=== PATIENT | male | born 1975 | race Caucasian/White ===

== ENCOUNTER 2025-03-14 11:00 | Outpatient (CLI) | payer OTHER, SELFPAY ==
[2025-03-14 15:44] LABS: Hematocrit 47.8 % (42.0-52.0); Hemoglobin 15.1 g/dL (14.1-18.0); Mean Corpuscular HGB Conc 31.6 g/dL (31.8-35.4); Mean Corpuscular Hemoglobin 28.1 pg (27.0-31.2); Mean Corpuscular Volume 88.8 fl (80-94); Platelet Count 382 K/mm3 (142-424); Red Blood Count 5.38 M/mm3 (4.60-6.20); White Blood Count 16.8 K/mm3 (4.8-10.8)
[2025-03-14 16:14] LABS: Total Cells Counted 100
[2025-03-14 16:17] LABS: RBC Morphology Normal
[2025-03-14 17:00] LABS: Albumin Level 4.1 g/dl (3.5-5.0); Chloride 103 mmol/L (98-107); Potassium 4.6 mmoL/L (3.5-5.1); Sodium 139 mmol/L (136-145)
[2025-03-14 17:02] LABS: Alanine Aminotransferase 13 U/L (12-78); Anion Gap 14.6 mEq/L (5-15); Aspartate Amino Transferase 20 U/L (17-59); Blood Urea Nitrogen 16 mg/dl (9-20); Carbon Dioxide 26 mmol/L (22.0-30.0); Creatinine,Serum 1.00 mg/dl (0.66-1.25); Estimated Glomerular Filt Rate 80 ml/min (>60); GFR (African American) 97 ML/MIN (>60)
[2025-03-14 17:03] LABS: Albumin/Globulin Ratio 1.5 (1.1-1.8); Alkaline Phosphatase 102 U/L (38-126); Bilirubin,Total 0.5 mg/dl (0.2-1.3); Calcium 9.0 mg/dl (8.4-10.2); Globulin 2.8 g/dL (1.3-3.2); Glucose 98 mg/dl (74-100); Total Protein,Serum 6.9 g/dl (6.3-8.2)
[2025-03-14 17:34] LABS: Thyroid Stimulating Hormone 1.99 uIU/mL (0.465-4.68)
--- OUTSIDE RECORDS SUMMARY | 2025-03-15 09:42 | XMS_ITS | Clinical Summary ---
Author Organization Healthcare Address [address] 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 Role Phone Unavailable Primary Care Provider Unavailabl e Encounters Date Type Department Care Team Description 01/03/2025 Orders Only External Location [address] [place] [address] Provider, External from Last 3 Months Social History Tobacco Use Types Packs/Day Years Used Date Smoking Tobacco: Never Assessed Sex and Gender Information Value Date Recorded Sex Assigned at Not on file Legal Sex Male 8:34 AM EDT Gender Identity Not on file Sexual Orientation Not on file Plan of Treatment Health Maintenance Due Date Last Done Comments [facility]-Depression Screening 1976 [facility]-/Child/Adol SDOH Screenings 1976 [facility]- SDOH Screenings 1994 [facility]-Adult SDOH Screenings 1994 [facility]-DTaP,Tdap,and Td Vaccine s (1 - Tdap) 09/23/1995 [facility]-Hepatitis B Vaccines (1 of 3 - 19+ 3-dose series) 09/23/1995 CT Colonography 2021 Colonoscopy 2021 FIT-DNA 2021 FIT 2021 FOBT 2021 Sigmoidoscopy 2021 [facility]-Colorectal Cancer Screening 2021 [id number] Vaccine (1 - 20 24-25 season) 2025 [facility]-Influenza Vaccine (#1) 2025 [facility]-Zoster Vaccines (1 of 2) 2026 HPV Vaccines Aged Out No longer eligi ble based on patient's age to complete this topic [facility]-HIB Vaccines Aged Out No longer e ligible based on patient's age to complete this topic [facility]-Hepatitis A Vaccines Aged Out No longer eligible based on patient's age to complete this topic [facility]-IPV Vaccines Aged Out No longer e ligible based on patient's age to complete this topic [facility]-Pneumococcal Vaccine: Pediatrics (0 to 5 Years) and At-Risk Patients (6 to 49 Years) Aged Out No long er eligible based on patient's age to complete this topic [facility]-Rotavirus Vaccines Aged Out No lo nger eligible based on patient's age to complete this topic Procedures Procedure Name Priority Date/Time Associated Diagnosis Comments CT OUTSIDE IMAGES 01/03/2025 3:22 AM EDT from Last 3 Months Results * CT OUTSIDE IMAGES (01/03/2025 3:22 AM EDT) Anatomical Region Laterality Modality Computed Tomogra phy 01/03/2025 3:22 AM EDT us External Provider IMG CT PROCEDURES Final Result from Last 3 Months
--- OUTSIDE RECORDS SUMMARY | 2025-03-15 09:42 | XMS_ITS | Clinical Summary ---
Author Organization [facility] Address [address] [place] [id number] Care Team Providers Care Perioperative Nurse Name Role Phone Pcp, No Primary Care Provider [phone] Source Comments This information has been disclosed to you from confidential records protectedfrom disclosure by state law. You shall make no further disclosure of thisinformation without the specific, written, and informed release of theindividual to whom it pertains, or as otherwise permitted by law. A generalauthorization for the release of medical or other information is not sufficientfor the purposes of therelease of HIV test results or diagnoses. [id number] Allergies Active Allergy Reactions Criticality Noted Date Comments Amoxicillin Nausea And Vomiting 01/03/2025 Medications atorvastatin (LIPITOR) 40 MG tablet Take 1 tablet (40 mg total) by mouth at bedtime. 30 tablet 01/04/2025 2:30 PM EDT 01/04/2025 Active nicotine (NICODERM CQ) 14 mg/[address] 1 patch onto the skin daily. 28 patch 01/04/2025 2:30 PM EDT 01/05/2025 Active Active Problems Problem Noted Date Diagnosed Date Hypertension 01/03/2025 Assessment & Plan (01/03/2025 5:31 PM EDT): Prescibred amlodipine. Not taking. Elevated blood pressure is likely working with anticoagulation to increase LE perfusion. - CTM Leukocytosis 01/03/2025 Assessment & Plan (01/03/2025 5:31 PM EDT): As per patient this is chronic. High concern for hematologic malignancy if chart review does not corroborate. Patient has not B symptoms. - CTM Aortic thrombus 01/03/2025 Assessment & Plan (01/03/2025 5:31 PM EDT): Aortic thrombus identified on CT at OSH for which read is not available. High concern for hypercoagulable state as primary inciting factor complicated by 30 pack-year smoking hx and subsequent endothelial damage. Will hold off on lupus anticoagulant given heparin gtt initiation. - Heparin as above - anticardiolipin, Beta 2 glycoprotein - Factor V Leiden - Protein C, S Anxiety 01/03/2025 Assessment & Plan (01/03/2025 5:31 PM EDT): - Atarax 10 mg TID PRN Tobacco use 01/03/2025 Assessment & Plan (01/03/2025 5:31 PM EDT): - NRT PRN Resolved Problems Problem Noted Date Diagnosed Date Resolved Date Acute lower limb ischemia 01/03/2025 Assessment & Plan (01/03/2025 5:31 PM EDT): Ddx: likely related to aortic thrombus and break off. Less likely due to cholesterol emboli or paradoxical emboli. - Q4 NV checks, page vascular surgery if change in exam - Continue heparin gtt - Recommend TTE - Recommend noncontrast CT head for recent fall with head strike - Recommend CTA Chest, abdomen, and pelvis with runoff when ok from renal perspective. AGUSTIN (acute kidney injury) 01/03/2025 Assessment & Plan (01/03/2025 5:31 PM EDT): Ddx: likely pre-renal less likely 2/2 intrarenal 2/2 TLS in settging of leukocytosis. - 125 ml/hr LR - Repeat AM labs - TLS labs Chest pain 01/03/2025 01/04/2025 Assessment & Plan (01/03/2025 5:31 PM EDT): EKG sinus rhythm, troponin 8, CK 68, repeat 64. Overall reassuring for any acute cardiac etiology. Current working differential includes GERD based on hx of sx, but could also be a component of vascular etiology given his multiple thrombi cannot r/o PE. Vital signs reassuring, SpO2 100% on RA, HR 80. Also hx of recent fall, could be some msk component. - CTM Encounters Date Type Department Care Team Description 01/04/2025 Telephone [facility] Vascular Surgery at [facility] [address] [place] [address] Brenden Hdez MD 01/03/2025 11:19 AM EDT - 01/04/2025 2:42 PM EDT Hospital Encounter [facility] [address] [place] [address] Genaro Bowers MD Clark, Danielle Lillian, MD PAD (peripheral artery disease) ([facility]) (Primary Dx) Discharge Disposition: Home or Self Care WITHOUT Home Care Services 01/03/2025 Travel from Last 3 Months Social History Tobacco Use Types Packs/Day Years Used Date Smoking Tobacco: Every Day Cigarettes Tobacco Cessation:Ready to Q uit: Not Asked; Counseling Given: Not Answered Utilities Answer Date Recorded In the past 12 months has [employer], gas, oil, or water [employer] threatened to shut off services in your home? No 01/03/2025 AUDIT-C Answer Date Recorded Q1: How often do you have a drink containing alcohol? Never 01/03/2025 Q2: How many drinks containi ng alcohol do you have on a typical day when you are drinking? Patient does not drink Q3: How often do you have si x or more drinks on one occasion? Never 01/03/2025 Hunger Vital Sign Answer Date Recorded Within the past 12 months, y ou worried that your food would run out before you got the money to buy more. Never true 01/04/20 25 Within the past 12 months, t he food you bought just didn't last and you didn't have money to get more. Never true 01/03/2025 PRAPARE - Transportation Answer Date Re corded In the past 12 months, has l ack of transportation kept you from medical appointments or from getting medications? No 12/20 In the past 12 months, has l ack of transportation kept you from meetings, work, or from getting things needed for daily living? No 01/03/2025 Housing Stability Vital Sign Answer Valentin e Recorded In the last 12 months, was t here a time when you were not able to pay the mortgage or rent on time? No 01/03/2025 In the past 12 months, how m any times have you moved where you were living? 0 01/03/2025 At any time in the past 12 m [facility], were you homeless or living in a custodial (including now)? No 01/03/2025 Sex and Gender Information Value Date Recorded Sex Assigned at Not on file Legal Sex Male 5:05 AM EDT Gender Identity Not on file Sexual Orientation Not on file Last Filed Vital Signs Vital Sign Reading Time Taken Comments Blood Pressure 180/99 01/04/2025 11:13 AM EDT Pulse 76 01/04/2025 11:13 AM EDT Temperature 36.7 C (98 F) 01/04/2025 11:13 AM EDT Respiratory Rate 18 01/04/2025 11:13 AM EDT Oxygen Saturation 98% 01/04/2025 11:13 AM EDT Inhaled Oxygen Concentration 98% 01/04/2025 1 1:13 AM EDT Weight 77.1 kg (170 lb) 01/03/2025 11:24 AM EDT Height 175.3 cm (5' 9 ) 01/03/2025 11:24 AM EDT Body Mass Index 25.1 01/03/2025 11:24 AM EDT Plan of Treatment Health Maintenance Due Date Last Done Comments Abnormal Colonoscopy Follow Up 1975 Tobacco Cessation Readiness 1975 Depression Screening 1994 HIV Screening 1994 Immunization: DTaP/Tdap/Td (1 - Tdap) 09/23/1995 Immunization: Hepatitis B (1 of 3 - 19+ 3-dose series) 09/23/1995 Immunization: Pneumococcal (1 of 2 - PCV) 09/23/1995 Cologuard (FIT-DNA) 2021 Colonoscopy 2021 Colorectal Cancer Screening (MyChart) 2021 Stool Testing (gFOBT) 2021 Immunization: COVID-19 ( season) 2025 Immunization: Influenza (MyChart) (#1) 2025 Alcohol Misuse Screening 01/03/2026 01/03/2025 Renal Function/GFR 01/04/2026 01/04/2025, 01/03/2025 Hepatitis C Screening ([facility]) Completed Procedures Procedure Name Priority Date/Time Associated Diagnosis Comments VASC BERNARD SINGLE LVL BILATERAL Routine 01/04/2025 2:05 PM EDT APTT-HEPARIN Timed 01/04/2025 12:17 PM EDT EKG - SCAN 01/04/2025 11:34 AM EDT ECHO COMPLETE Routine 01/04/2025 9:04 AM EDT LACTATE DEHYDROGENASE Routine 01/04/2025 6:44 AM EDT APTT-HEPARIN Timed 01/04/2025 6:44 AM EDT C-REACTIVE PROTEIN Routine 01/04/2025 6: 44 AM EDT SED RATE Routine 01/04/2025 6:44 AM EDT LIPID PANEL Routine 01/04/2025 6:44 AM EDT RENAL FUNCTION PANEL W/EGFR Routine 01/04/2025 6:44 AM EDT MAGNESIUM Routine 01/04/2025 6:44 AM EDT CBC Routine 01/04/2025 6:[address] PULMONARY ANGIOGRAPHY Routine 01/04/2025 12:[address] ANGIO ABDOMEN AND PELVIS W AND OR WO IV CONTRAST Routine 01/04/2025 12:[address] HEAD WO CONTRAST STAT 01/04/2025 1 2:34 AM EDT APTT-HEPARIN Timed 01/03/2025 11:16 PM EDT ANTICARDIOLIPIN ANTIBODY- IGG/IGM Routine 01/03/2025 5:33 PM EDT ANTITHROMBIN III Routine 01/03/2025 5:33 PM EDT PROTEIN C ACTIVITY Routine 01/03/2025 5: 33 PM EDT PROTEIN S, FUNCTIONAL Routine 01/03/2025 5:33 PM EDT FACTOR 5 LEIDEN, FACTOR 2 DNA BY PCR Routine 01/03/2025 5:33 PM EDT BETA 2 GLYCOPROTEIN IGG/IGM Routine 01/03/2025 5:33 PM EDT LACTATE DEHYDROGENASE STAT 01/03/2025 5:15 PM EDT URIC ACID Routine 01/03/2025 5:15 PM EDT APTT STAT 01/03/2025 5:15 PM EDT PROTIME-INR STAT 01/03/2025 5:15 PM EDT CBC STAT 01/03/2025 5:15 PM EDT CK Add-On 01/03/2025 4:24 PM EDT HIGH SENSITIVITY TROPONIN STAT 01/03/2025 2:32 PM EDT XR PORTABLE CHEST BUZZ 01/03/2025 1:1 3 PM EDT ANTIBODY SCREEN STAT 01/03/2025 11:52 AM EDT ABO/RH STAT 01/03/2025 11:52 AM EDT APTT Add-On 01/03/2025 11:52 AM EDT CK Add-On 01/03/2025 11:52 AM EDT PROTIME-INR STAT 01/03/2025 11:52 AM EDT DIFFERENTIAL STAT 01/03/2025 11:52 AM EDT CBC STAT 01/03/2025 11:52 AM EDT HEMOGLOBIN A1C Routine 01/03/2025 11:52 AM EDT ED HCV AB REFLEX TO HCV QUANT Routine 01/03/2025 11:52 AM EDT BASIC METABOLIC PANEL STAT 01/03/2025 11:52 AM EDT ED ECG 12-LEAD (MUSE) STAT 01/03/2025 11:39 AM EDT HIGH SENSITIVITY TROPONIN STAT 01/03/2025 11:36 AM EDT from Last 3 Months Results * BERNARD-Ankle Brachial Index (01/04/2025 2:05 PM EDT) Anatomical Region Laterality Modality Vascular Ultrasound 01/04/2025 2:38 PM EDT Narrative 01/04/2025 2:38 PM EDT Bilateral: Doppler waveforms are recorded as multiphasic at the ankle level. Ankle/brachial index (BERNARD) is 1.05 on the right and 0.97 on the left. Toe/brachial index (TBI) is 1.09 on the right and 0.64 on the left. Digit PPG waveform contours appear normal. Conclusions: Normal resting ABIs and distal tibial Doppler waveforms bilateral lower extremities. Procedure: Non-invasive lower extremity arterial examination is performed with the patient in a supine position. Continuous-wave (CW) Doppler is used for waveform acquisition routinely at the posterior tibial and dorsalis pedis levels with selection of either a 4MHz or 8MHz probe. Pneumatic cuffs for the limb segments are applied and pressures are obtained in both brachial arteries, both posterior tibial arteries, and both dorsalis pedis arteries. Photoplethysmography (PPG) is used to obtain digit waveforms and pressure recordings. Procedure Note Eduard Mejia MD - 01/04/2025 Bilateral: Doppler waveforms are recorded as multiphasic at the anklelevel. Ankle/brachial index (BERNARD) is 1.05 on the right and 0.97 on theleft. Toe/brachial index (TBI) is 1.09 on the right and 0.64 on the left.Digit PPG waveform contours appear normal. Conclusions: Normal resting ABIs and distal tibial Doppler waveformsbilateral lower extremities. Procedure: Non-invasive lower extremity arterial examination is performedwith the patient in a supine position. Continuous-wave (CW) Doppler isused for waveform acquisition routinely at the posterior tibial anddorsalis pedis levels with selection of either a 4MHz or 8MHz probe.Pneumatic cuffs for the limb segments are applied and pressures areobtained in both brachial arteries, both posterior tibial arteries, andboth dorsalis pedis arteries. Photoplethysmography (PPG) is used toobtain digit waveforms and pressure recordings. Svetlana Benavides CNP CV VASCULAR ORDERABLES Fin al Result * aPTT-Heparin (01/04/2025 12:17 PM EDT) Only the most recent of3 resultswithin the time period is included. hPTT 102.4 90.0 - 130.0 seconds 01/04/2025 12:44 PM EDT [facility] Plasma 01/04/2025 12:1 7 PM EDT 01/04/2025 12:25 PM EDT Naz Flores MD LAB BLOOD ORDERABLES F inal Result [facility] [address] [place] [address], [facility] * EKG - scan (01/04/2025 11:34 AM EDT) Scanning Uch[facility] SCAN DOCS - NO RESULTS Final Res ult * ECHO COMPLETE (01/04/2025 9:04 AM EDT) Anatomical Region Laterality Modality Chest Ultrasound 01/04/2025 8:46 AM EDT Narrative 01/04/2025 10:54 AM EDT * [facility]* [address] [place] [id number] Transthoracic Echocardiogram Patient: Juan García Room: 3220 Height: 69in MR Number: [id number] : 1975 Weight: 170lb Account: [id number] Gender: M BP: 187 / 3 Study Date: 01/04/2025 Age: 49 BSA: 1.93m^2 Referring physician: Eben Urena Interpreting physician: Rivera Mast PERFORMING Rivera Mast LITIGATION ATTORNEY ASSOCIATE Princess Dove ORDERING Eben Urena REFERRING Eben Urena ATTENDING Naz Flores ADMITTING Naz Flores Procedure:TRANSTHORACIC ECHO (TTE) Order: Accession COMPLETE Number:[id number] Indications: Shortness of breath (R06.02). Study data: Height: 69in. 175.3cm. Weight: 170lb. 77.1kg. Study status: Routine. Procedure: A transthoracic echocardiogram was performed. Image quality was good. Scanning was performed from the parasternal, apical, and subcostal acoustic windows. Transthoracic echocardiogram. M-mode, complete 2D, complete spectral Doppler, and color Doppler. Birthdate: Patient birthdate: 1975. Age: Patient is 49year(s) old. Sex: gender: male. Body mass index: BMI: 25.1kg/m^2. Body surface area: BSA: 1.93m^2. Blood pressure: 187/3 Patient status: Inpatient. Study date: Study date: 01/04/2025. Study time: 08:46 AM. Location: Echo laboratory. Study Conclusions - Left ventricle: The cavity size is normal. Wall thickness is normal. Systolic function is normal. The estimated ejection fraction is 55-60%. Wall motion is normal; there are no regional wall motion abnormalities. Cannot assess LV diastolic function. - Right ventricle: Systolic function is normal by visual assessment. Cardiac Anatomy Left ventricle: - The cavity size is normal. Wall thickness is normal. Systolic function is normal. The estimated ejection fraction is 55-60%. Wall motion is normal; there are no regional wall motion abnormalities. - Cannot assess LV diastolic function. Aortic valve: - TrileafletThe leaflets are normal thickness. Mobility is not restricted. Velocity is within the normal range. There is no stenosis. There is no regurgitation. The mean systolic gradient is 4mm Hg. The peak systolic gradient is 7mm Hg. The LVOT to aortic valve VTI ratio is 0.87. The valve area is 3.3cm^2. The valve area index is 1.7cm^2/m^2. The ratio of LVOT to aortic valve peak velocity is 0.76. The valve area is 2.9cm^2. The valve area index is 1.49cm^2/m^2. Mitral valve: - The valve is structurally normal. Mobility is not restricted. Inflow velocity is within the normal range. There is no evidence for stenosis. There is no regurgitation. The mean diastolic gradient is 2mm Hg. The peak diastolic gradient is 5mm Hg. The valve area is 1.9cm^2. The valve area index is 1cm^2/m^2. The valve area by pressure half-time is 4.5cm^2. The valve area index by pressure half-time is 2.33cm^2/m^2. The valve area (LVOT continuity) is 1.9cm^2. The valve area index (LVOT continuity) is 1cm^2/m^2. Left atrium: The atrium is normal in size. Pulmonary artery: - Systolic pressure could not be accurately estimated. Right ventricle: - The cavity size is normal. Wall thickness is normal. Systolic function is normal by visual assessment. Pulmonic valve: - Poorly visualized. Velocity is within the normal range. There is no evidence for stenosis. There is trivial regurgitation. Tricuspid valve: - The valve is structurally normal. Inflow velocity is within the normal range. There is trivial regurgitation. Right atrium: The atrium is normal in size. Pericardium: - There is no pericardial effusion. Systemic veins: Inferior vena cava: The IVC is normal-sized. Measurements Left ventricle Value Ref PRASAD, LAX (L) 4.1 cm 4.2 - 5.8 ESD, LAX (N) 2.7 cm 2.5 - 4.0 PRASAD/bsa, LAX (L) 2.1 cm/m^2 2.2 - 3.0 ESD/bsa, LAX (N) 1.4 cm/m^2 1.3 - 2.1 FS, LAX (N) 35 % 25 - 43 FS, LAX chord (N) 35 % 25 - 43 ESD major ax, A4C 6.6 cm --------- ESD/bsa major ax, A4C 3.4 cm/m^2 --------- PRASAD minor ax, A4C 6.6 cm --------- PRASAD/bsa minor ax, A4C 3.4 cm/m^2 --------- BROOKE, A4C 25.8 cm^2 --------- MELIDA, A4C 14.8 cm^2 --------- FAC, A4C 43 % --------- PRASAD major ax, A2C 8.3 cm --------- PRASAD/bsa major ax, A2C 4.3 cm/m^2 --------- BROOKE, A2C 27.3 cm^2 --------- MELIDA, A2C 14.2 cm^2 --------- FAC, A2C 48 % --------- IVS, ED (N) 0.8 cm 0.6 - 1.0 ESD (N) 2.7 cm 2.5 - 4.0 ESD/bsa (N) 1.4 cm/m^2 1.3 - 2.1 PW, ED (N) 1.0 cm 0.6 - 1.0 IVS/PW, ED 0.84 --------- EDV (N) 76 ml 62 - 150 ESV (N) 27 ml 21 - 61 EF (N) 65 % 52 - 72 SV 77 ml --------- Qs 4.3 L/min --------- EDV/bsa (N) 39 ml/m^2 34 - 74 ESV/bsa (N) 14 ml/m^2 11 - 31 SV/bsa 40 ml/m^2 --------- Qs/bsa 2.2 L/(min-m^2) --------- EDV, 1-p A2C (N) 76 ml 59 - 175 ESV, 1-p A2C (N) 50 ml 15 - 75 EF, 1-p A2C (N) 66 % 48 - 76 SV, 1-p A2C 49 ml --------- EDV/bsa, 1-p A2C (N) 39 ml/m^2 31 - 87 ESV/bsa, 1-p A2C (N) 26 ml/m^2 9 - 37 SV/bsa, 1-p A2C 25.2 ml/m^2 --------- EDV, 1-p A4C (L) 66 ml 69 - 185 ESV, 1-p A4C (N) 29 ml 22 - 78 EF, 1-p A4C (N) 56 % 46 - 74 SV, 1-p A4C 51 ml --------- EDV/bsa, 1-p A4C (L) 34 ml/m^2 37 - 93 ESV/bsa, 1-p A4C (N) 15 ml/m^2 12 - 40 SV/bsa, 1-p A4C 26 ml/m^2 --------- EF, 2-p (N) 61 % 52 - 72 SV, 2-p 43 ml --------- SV/bsa, 2-p 19.4 ml/m^2 --------- E', lat davide, TDI (N) 10.0 cm/sec >=10.0 E/e', lat davide, TDI (N) 11 <=13 E', med davide, TDI (L) 6.1 cm/sec >=7.0 E/e', med davide, TDI 18 --------- E', avg, TDI 8.0 cm/sec --------- E/e', avg, TDI (N) 13 <=14 LVOT Value Ref Diam, S 2.2 cm --------- Area 3.8 cm^2 --------- Peak saida, S 0.98 m/sec --------- Peak grad, S 4 mm Hg --------- SV 77 ml --------- SV/bsa 40 ml/m^2 --------- Right ventricle Value Ref PRASAD minor ax, A4C base (N) 2.9 cm 2.5 - 4.1 PRASAD minor ax, A4C mid (N) 2.4 cm 1.9 - 3.5 TAPSE, MM (N) 2.6 cm >=1.7 S' lateral (N) 14.8 cm/sec >=9.5 RVOT Value Ref Peak v, S 0.74 m/sec --------- Left atrium Value Ref AP dim, ES (N) 3.2 cm 3.0 - 4.0 AP dim index, ES (N) 1.7 cm/m^2 1.5 - 2.3 Area ES, A4C (N) 16 cm^2 <=20 Area/bsa ES, A4C 8.45 cm^2/m^2 --------- SI dim, A2C 5.4 cm --------- Vol, S (N) 46 ml 18 - 58 Vol/bsa, S (N) 24 ml/m^2 16 - 34 Vol, ES, 1-p A4C (N) 42 ml 18 - 58 Vol/bsa, ES, 1-p A4C (N) 22 ml/m^2 12 - 37 Vol, ES, 1-p A2C (N) 48 ml 18 - 58 Vol/bsa, ES, 1-p A2C (N) 25 ml/m^2 11 - 43 Vol, ES, 2-p 46 ml --------- Vol/bsa, ES, 2-p (N) 24 ml/m^2 16 - 34 Right atrium Value Ref Area, ES, A4C (N) 13 cm^2 10 - 18 Aortic valve Value Ref Peak v, S 1.3 m/sec --------- Mean v, S 0.89 m/sec --------- Mean grad, S 4 mm Hg --------- Peak grad, S 7 mm Hg --------- LVOT/AV, VTI ratio 0.87 --------- NATALIE, VTI 3.3 cm^2 --------- NATLAIE/bsa, VTI 1.7 cm^2/m^2 --------- LVOT/AV, Vpeak ratio 0.76 --------- NATALIE, Vmax 2.9 cm^2 --------- NATALIE/bsa, Vmax 1.49 cm^2/m^2 --------- Mitral valve Value Ref Mean v, D 0.56 m/sec --------- Peak E 1.07 m/sec --------- Peak A 0.81 m/sec --------- VTI leaflet coapt 39.7 cm --------- MiV/LVOT VTI 2.0 --------- Decel slope 736 cm/s^2 --------- Decel time 190 ms --------- PHT 49 ms --------- Mean grad, D 2 mm Hg --------- Peak grad, D 5 mm Hg --------- Peak E/A ratio 1.3 --------- E-VTI 39.7 cm --------- A-VTI 39.7 cm --------- VTI E/A 1.0 --------- MVA 1.9 cm^2 --------- MVA/bsa 1 cm^2/m^2 --------- MVA, PHT 4.5 cm^2 --------- MVA/bsa, PHT 2.33 cm^2/m^2 --------- MVA, LVOT cont 1.9 cm^2 --------- MVA/bsa, LVOT cont 1 cm^2/m^2 --------- Davide VTI 39.7 cm --------- Pulmonic valve Value Ref Peak v, S 1.1 m/sec --------- Aortic root Value Ref Root diam (N) 3.9 cm 2.6 - 4.1 Root diam/bsa 2.0 cm/m^2 --------- Legend: (L) and (H) sybil values outside specified reference range. (N) chiu values inside specified reference range. Reviewed and confirmed by Rivera Mast [id number] Procedure Note Rivera Mast MD - 01/04/2025 * [facility]* [address] [place] [address] Transthoracic Echocardiogram Patient: Juan García Room: 3220 Height: 69in MR Number: [id number] : 1975 Weight: 170lb Account: [id number] Gender: M BP: 187 /3 Study Date: 01/04/2025 Age: 49 BSA:1.93m^2 Referring physician: Eben Urena Interpreting physician: Rivera Mast PERFORMING Rivera Mast LITIGATION ATTORNEY ASSOCIATE Princess Dove ORDERING Eben Urena REFERRING Eben Urena ATTENDING Naz Flores ADMITTING Naz Flores Procedure:TRANSTHORACIC ECHO (TTE) Order: Accession COMPLETE Number:[id number] Indications: Shortness of breath (R06.02). Study data: Height: 69in. 175.3cm. Weight: 170lb. 77.1kg. Studystatus: Routine. Procedure: A transthoracic echocardiogram was performed.Image quality was good. Scanning was performed from the parasternal, apical,and subcostal acoustic windows. Transthoracic echocardiogram.M-mode, complete 2D, complete spectral Doppler, and color Doppler. Birthdate: Patient birthdate: 1975. Age: Patient is 49year(s) old. Sex: gender: male. Body mass index: BMI: 25.1kg/m^2. Body surface area: BSA: 1.93m^2. Blood pressure: 187/3 Patient status: Inpatient.Study date: Study date: 01/04/2025. Study time: 08:46 AM. Location: Echo laboratory. Study Conclusions - Left ventricle: The cavity size is normal. Wall thickness is normal. Systolic function is normal. The estimated ejection fraction is55-60%. Wall motion is normal; there are no regional wall motionabnormalities. Cannot assess LV diastolic function. - Right ventricle: Systolic function is normal by visual assessment. Cardiac Anatomy Left ventricle: - The cavity size is normal. Wall thickness is normal. Systolic functionis normal. The estimated ejection fraction is 55-60%. Wall motion isnormal; there are no regional wall motion abnormalities. - Cannot assess LV diastolic function. Aortic valve: - TrileafletThe leaflets are normal thickness. Mobility is notrestricted. Velocity is within the normal range. There is no stenosis. There is no regurgitation. The mean systolic gradient is 4mm Hg. The peak systolic gradient is 7mm Hg. The LVOT to aortic valve VTI ratio is 0.87. Thevalve area is 3.3cm^2. The valve area index is 1.7cm^2/m^2. The ratio of LVOTto aortic valve peak velocity is 0.76. The valve area is 2.9cm^2. Thevalve area index is 1.49cm^2/m^2. Mitral valve: - The valve is structurally normal. Mobility is not restricted. Inflow velocity is within the normal range. There is no evidence forstenosis. There is no regurgitation. The mean diastolic gradient is 2mm Hg. Thepeak diastolic gradient is 5mm Hg. The valve area is 1.9cm^2. The valvearea index is 1cm^2/m^2. The valve area by pressure half-time is 4.5cm^2.The valve area index by pressure half-time is 2.33cm^2/m^2. The valve area (LVOT continuity) is 1.9cm^2. The valve area index (LVOT continuity)is 1cm^2/m^2. Left atrium: The atrium is normal in size. Pulmonary artery: - Systolic pressure could not be accurately estimated. Right ventricle: - The cavity size is normal. Wall thickness is normal. Systolic functionis normal by visual assessment. Pulmonic valve: - Poorly visualized. Velocity is within the normal range. There is no evidence for stenosis. There is trivial regurgitation. Tricuspid valve: - The valve is structurally normal. Inflow velocity is within the normal range. There is trivial regurgitation. Right atrium: The atrium is normal in size. Pericardium: - There is no pericardial effusion. Systemic veins: Inferior vena cava: The IVC is normal-sized. Measurements Left ventricle Value Ref PRASAD, LAX (L) 4.1 cm 4.2 - 5.8 ESD, LAX (N) 2.7 cm 2.5 - 4.0 PRASAD/bsa, LAX (L) 2.1 cm/m^2 2.2 - 3.0 ESD/bsa, LAX (N) 1.4 cm/m^2 1.3 - 2.1 FS, LAX (N) 35 % 25 - 43 FS, LAX chord (N) 35 % 25 - 43 ESD major ax, A4C 6.6 cm --------- ESD/bsa major ax, A4C 3.4 cm/m^2 --------- PRASAD minor ax, A4C 6.6 cm --------- PRASAD/bsa minor ax, A4C 3.4 cm/m^2 --------- BROOKE, A4C 25.8 cm^2 --------- MELIDA, A4C 14.8 cm^2 --------- FAC, A4C 43 % --------- PRASAD major ax, A2C 8.3 cm --------- PRASAD/bsa major ax, A2C 4.3 cm/m^2 --------- BROOKE, A2C 27.3 cm^2 --------- MELIDA, A2C 14.2 cm^2 --------- FAC, A2C 48 % --------- IVS, ED (N) 0.8 cm 0.6 - 1.0 ESD (N) 2.7 cm 2.5 - 4.0 ESD/bsa (N) 1.4 cm/m^2 1.3 - 2.1 PW, ED (N) 1.0 cm 0.6 - 1.0 IVS/PW, ED 0.84 --------- EDV (N) 76 ml 62 - 150 ESV (N) 27 ml 21 - 61 EF (N) 65 % 52 - 72 SV 77 ml --------- Qs 4.3 L/min --------- EDV/bsa (N) 39 ml/m^2 34 - 74 ESV/bsa (N) 14 ml/m^2 11 - 31 SV/bsa 40 ml/m^2 --------- Qs/bsa 2.2 L/(min-m^2) --------- EDV, 1-p A2C (N) 76 ml 59 - 175 ESV, 1-p A2C (N) 50 ml 15 - 75 EF, 1-p A2C (N) 66 % 48 - 76 SV, 1-p A2C 49 ml --------- EDV/bsa, 1-p A2C (N) 39 ml/m^2 31 - 87 ESV/bsa, 1-p A2C (N) 26 ml/m^2 9 - 37 SV/bsa, 1-p A2C 25.2 ml/m^2 --------- EDV, 1-p A4C (L) 66 ml 69 - 185 ESV, 1-p A4C (N) 29 ml 22 - 78 EF, 1-p A4C (N) 56 % 46 - 74 SV, 1-p A4C 51 ml --------- EDV/bsa, 1-p A4C (L) 34 ml/m^2 37 - 93 ESV/bsa, 1-p A4C (N) 15 ml/m^2 12 - 40 SV/bsa, 1-p A4C 26 ml/m^2 --------- EF, 2-p (N) 61 % 52 - 72 SV, 2-p 43 ml --------- SV/bsa, 2-p 19.4 ml/m^2 --------- E', lat davide, TDI (N) 10.0 cm/sec >=10.0 E/e', lat davide, TDI (N) 11 <=13 E', med davide, TDI (L) 6.1 cm/sec >=7.0 E/e', med davide, TDI 18 --------- E', avg, TDI 8.0 cm/sec --------- E/e', avg, TDI (N) 13 <=14 LVOT Value Ref Diam, S 2.2 cm --------- Area 3.8 cm^2 --------- Peak saida, S 0.98 m/sec --------- Peak grad, S 4 mm Hg --------- SV 77 ml --------- SV/bsa 40 ml/m^2 --------- Right ventricle Value Ref PRASAD minor ax, A4C base (N) 2.9 cm 2.5 - 4.1 PRASAD minor ax, A4C mid (N) 2.4 cm 1.9 - 3.5 TAPSE, MM (N) 2.6 cm >=1.7 S' lateral (N) 14.8 cm/sec >=9.5 RVOT Value Ref Peak v, S 0.74 m/sec --------- Left atrium Value Ref AP dim, ES (N) 3.2 cm 3.0 - 4.0 AP dim index, ES (N) 1.7 cm/m^2 1.5 - 2.3 Area ES, A4C (N) 16 cm^2 <=20 Area/bsa ES, A4C 8.45 cm^2/m^2 --------- SI dim, A2C 5.4 cm --------- Vol, S (N) 46 ml 18 - 58 Vol/bsa, S (N) 24 ml/m^2 16 - 34 Vol, ES, 1-p A4C (N) 42 ml 18 - 58 Vol/bsa, ES, 1-p A4C (N) 22 ml/m^2 12 - 37 Vol, ES, 1-p A2C (N) 48 ml 18 - 58 Vol/bsa, ES, 1-p A2C (N) 25 ml/m^2 11 - 43 Vol, ES, 2-p 46 ml --------- Vol/bsa, ES, 2-p (N) 24 ml/m^2 16 - 34 Right atrium Value Ref Area, ES, A4C (N) 13 cm^2 10 - 18 Aortic valve Value Ref Peak v, S 1.3 m/sec --------- Mean v, S 0.89 m/sec --------- Mean grad, S 4 mm Hg --------- Peak grad, S 7 mm Hg --------- LVOT/AV, VTI ratio 0.87 --------- NATALIE, VTI 3.3 cm^2 --------- NATALIE/bsa, VTI 1.7 cm^2/m^2 --------- LVOT/AV, Vpeak ratio 0.76 --------- NATALIE, Vmax 2.9 cm^2 --------- NATALIE/bsa, Vmax 1.49 cm^2/m^2 --------- Mitral valve Value Ref Mean v, D 0.56 m/sec --------- Peak E 1.07 m/sec --------- Peak A 0.81 m/sec --------- VTI leaflet coapt 39.7 cm --------- MiV/LVOT VTI 2.0 --------- Decel slope 736 cm/s^2 --------- Decel time 190 ms --------- PHT 49 ms --------- Mean grad, D 2 mm Hg --------- Peak grad, D 5 mm Hg --------- Peak E/A ratio 1.3 --------- E-VTI 39.7 cm --------- A-VTI 39.7 cm --------- VTI E/A 1.0 --------- MVA 1.9 cm^2 --------- MVA/bsa 1 cm^2/m^2 --------- MVA, PHT 4.5 cm^2 --------- MVA/bsa, PHT 2.33 cm^2/m^2 --------- MVA, LVOT cont 1.9 cm^2 --------- MVA/bsa, LVOT cont 1 cm^2/m^2 --------- Davide VTI 39.7 cm --------- Pulmonic valve Value Ref Peak v, S 1.1 m/sec --------- Aortic root Value Ref Root diam (N) 3.9 cm 2.6 - 4.1 Root diam/bsa 2.0 cm/m^2 --------- Legend: (L) and (H) sybil values outside specified reference range. (N) chiu values inside specified reference range. Reviewed and confirmed by Rivera Mast [id number] us Eben Urena MD CV ECHO ORDERABLES Final Re sult * Renal Function Panel w/EGFR (01/04/2025 6:44 AM EDT) Sodium 137 133 - 146 mmol/L 01/04/2025 7:32 AM EDT [facility] Potassium 3.5 3.5 - 5.3 mmol/L 01/04/2025 7:32 AM EDT [facility] Chloride 105 98 - 110 mmol/L 01/04/2025 7:32 AM EDT [facility] CO2 22 21 - 33 mmol/L 01/04/2025 7:32 AM EDT [facility] Anion Gap 10 3 - 16 mmol/L 01/04/2025 7:32 AM EDT [facility] BUN 12 7 - 25 mg/dL 01/04/2025 7:32 AM EDT [facility] Creatinine 0.88 0.60 - 1.30 mg/dL 01/04/2025 7:32 AM EDT [facility] Glucose 97 70 - 100 mg/dL 01/04/2025 7:32 AM EDT [facility] Calcium 8.9 8.6 - 10.3 mg/dL 01/04/2025 7:32 AM EDT [facility] Phosphorus 2.3 2.1 - 4.7 mg/dL 01/04/2025 7:32 AM EDT [facility] Albumin 3.9 3.5 - 5.7 g/dL 01/04/2025 7:32 AM EDT [facility] Osmolality, Calculated 284 278 - 305 mOsm/kg 01/04/2025 7:32 AM EDT [facility] EGFR >90 01/04/2025 7:32 AM EDT [facility] Comment: As of 2021, the estimated GFR is calculated using the 2020 Chronic Kidney Disease Epidemiology Collaboration (CKD-EPI) equation. In line with the NKF-ASN Task Force Recommendations, this equation does not include a coefficient for race. A single eGFR value is calculated for each patient. The reference interval is >60 mL/min/1.73m2. eGFR values greater than 90 will be reported as >90mL/min/1.73m2. Reference: Jaxson C, Thuan M, Raoul DC, Gabriele ND, Rahul CA, Holly [place], et al. A Unifying Approach for GFR Estimation: Recommendations of the NKF-ASN Task Force on Reassessing the inclusion of Race in Diagnosing Kidney Disease. Am J Kidney Dis. 2020. GFR is estimated using creatinine, age, and sex. Patient's values should be interpreted as a trend. Below 90 mL/min/1.73m2, the patient may have renal disease. For additional information: www.kidney.org Plasma 01/04/2025 6:44 AM EDT 01/04/2025 6:58 AM EDT us Eben Urena MD LAB BLOOD ORDERABLES Final Result [facility] [address] [place], [place] [address] * Sed Rate (01/04/2025 6:44 AM EDT) Sed Rate 13 0 - 15 mm/hr 01/04/2025 8:23 AM EDT [facility] Whole Blood 01/04/2025 6:44 AM EDT 01/04/2025 6:58 AM EDT us Naz Flores MD LAB BLOOD ORDERABLES F inal Result [facility] [address] * (ABNORMAL) CBC (01/04/2025 6:44 AM EDT) Only the most recent of3 resultswithin the time period is included. WBC 15.6(H) 3.8 - 10.8 10E3/uL 01/04/2025 7:06 AM EDT [facility] RBC 5.14 4.20 - 5.80 10E6/uL 01/04/2025 7:06 AM EDT [facility] Hemoglobin 14.5 13.2 - 17.1 g/dL 01/04/2025 7:06 AM EDT [facility] Hematocrit 42.6 38.5 - 50.0 % 01/04/2025 7:06 AM EDT [facility] MCV 82.9 80.0 - 100.0 fL 01/04/2025 7:06 AM EDT [facility] MCH 28.2 27.0 - 33.0 pg 01/04/2025 7:06 AM EDT [facility] MCHC 34.0 32.0 - 36.0 g/dL 01/04/2025 7:06 AM EDT [facility] RDW 14.0 11.0 - 15.0 % 01/04/2025 7:06 AM EDT [facility] Platelets 262 140 - 400 10E3/uL 01/04/2025 7:06 AM EDT [facility] MPV 8.6 7.5 - 11.5 fL 01/04/2025 7:06 AM EDT [facility] Whole Blood 01/04/2025 6:44 AM EDT 01/04/2025 6:58 AM EDT Eben Urena MD LAB BLOOD ORDERABLES Final Result [facility] [address] [facility] * C-Reactive Protein (01/04/2025 6:44 AM EDT) CRP 1.9 1.0 - 10.0 mg/L 01/04/2025 7:32 AM EDT [facility] Plasma 01/04/2025 6:44 AM EDT 01/04/2025 6:58 AM EDT Naz Flores MD LAB BLOOD ORDERABLES F inal Result Performing Organization Address City/[facility]/ZIP Co de Phone Number [facility] [address] [facility]. [address] * Magnesium (01/04/2025 6:44 AM EDT) Pathologist [facility] Magnesium 1.6 1.5 - 2.5 mg/dL 01/04/2025 7:32 AM EDT [facility] Plasma 01/04/2025 6:44 AM EDT 01/04/2025 6:58 AM EDT Eben Urena MD LAB BLOOD ORDERABLES Final Result Performing Organization Address [facility] Co de Phone Number [facility] [address] [facility]. [address] * Lactate Dehydrogenase (01/04/2025 6:44 AM EDT) Only the most recent of2 resultswithin the time period is included. Pathologist [facility] LD 152 110 - 270 U/L 01/04/2025 7:31 AM EDT [facility] Plasma 01/04/2025 6:44 AM EDT 01/04/2025 6:59 AM EDT Porfirio Nova MD LAB BLOOD ORDERABLES Final Re sult Performing Organization Address [facility] Co de Phone Number [facility] [address] [facility] * (ABNORMAL) Lipid Profile, AM (01/04/2025 6:44 AM EDT) Pathologist [facility] Non-HDL Cholesterol, Calculated 172(H) 0 - 129 mg/dL 01/04/2025 7:32 AM EDT [facility] Comment: Desirable: < 130 mg/dL Above Desirable: 130-159 mg/dL Borderline High: 160-189 mg/dL High: 190-219 mg/dL Very High: > 219 mg/dL Cholesterol, Total 210(H) 0 - 200 mg/dL 01/04/2025 7:32 AM EDT [facility] Triglycerides 106 10 - 149 mg/dL 01/04/2025 7:32 AM EDT [facility] HDL 38(L) 60 - 92 mg/dL 01/04/2025 7:32 AM EDT [facility] Comment: LIPID PROFILE INTERPRETATION CHOLESTEROL,TOTAL(mg/dL) DESIRABLE: < 200 BORDERLINE HIGH RISK: 200 - 239 HIGH RISK(UNDESIRABLE): =/> 240 LDL CHOLESTEROL(mg/dL) OPTIMAL: < 100 NEAR HIGH OPTIMAL: 100 - 129 BORDERLINE HIGH RISK: 130 - 159 HIGH RISK: 160 - 189 VERY HIGH RISK: =/> 190 HDL CHOLESTEROL(mg/dL) HIGH RISK(UNDESIRABLE): < 40 BORDERLINE: 40 - 59 LOW RISK (DESIRABLE): => 60 TRIGLYCERIDES (mg/dL) NORMAL(DESIRABLE): < 150 BORDERLINE HIGH RISK: 150 - 199 HIGH RISK: 200 - 499 VERY HIGH RISK: =/> 500 Based on the guidlines of the National Cholesterol Education Program (NCEP). Assumes sample obtained after a 9- to 12- hour fast. LDL Cholesterol 151 mg/dL 7:32 AM EDT [facility] Plasma 01/04/2025 6:44 AM EDT 01/04/2025 6:58 AM EDT Narrative [facility] - 01/04/2025 7:32 AM EDT LDL cholesterol calculated using the Friedewald equation. us Naz Flores MD LAB BLOOD ORDERABLES F inal Result [facility] [address] [place] [address], [facility] * CT Angio Abd-Pelvis W and or WO IV Contrast (01/04/2025 12:34 AM EDT) Anatomical Region Laterality Modality Abdomen, Pelvis Computed Tomogra phy 01/04/2025 12:1 5 AM EDT Impressions 01/04/2025 8:32 AM EDT IMPRESSION: 1. Mild atherosclerosis of the infrarenal aorta and iliac branches. No intra-aortic thrombi within the abdomen. Visceral arteries are patent. Report Verified by: Stephen Chadwick MD at 01/04/2025 8:32 AM EDT Narrative 01/04/2025 8:32 AM EDT EXAM: CT ANGIO ABDOMEN AND PELVIS W AND OR WO IV CONTRAST INDICATION: Aortic thrombus TECHNIQUE: CT angiography of the abdomen and pelvis was performed. Axial images were obtained with coronal and sagittal reconstructions. 3-D reconstructions and maximum intensity projection images were performed on a separate workstation. CONTRAST: 140 mL of IOHEXOL 350 MG IODINE/ML INTRAVENOUS SOLUTION administered intravenously FIELD OF VIEW: 36 cm COMPARISON: Outside CT 21 hours prior FINDINGS: Lower Chest: Reported separately on a same day chest CT. Liver: Normal liver morphology. No focal liver lesion. Biliary Tree: Gallbladder is surgically absent. No biliary ductal dilation. Spleen: Unremarkable Pancreas: Normal Adrenal Glands: Nodular hyperplasia of the left adrenal gland, with no discrete lesion. Right adrenal gland is normal. Kidneys/Ureters: Symmetric size and enhancement. Mild cortical scarring in the left lower pole. No suspicious renal lesion. No collecting system dilation. Urinary bladder is unremarkable Gastrointestinal Tract: GI tract wall thickness and caliber is within normal limits. A few scattered diverticula. Moderate amount of stool throughout the colon. Normal appendix Lymphatics: No lymphadenopathy. Vasculature: * Eccentric thrombus in the lower descending thoracic aorta, grossly unchanged from 21 hours prior. Other intrathoracic aortic findings are reported on a concurrent CTPA. Mild calcified and noncalcified atherosclerotic disease at the infrarenal aorta and common iliac arteries, without aneurysmal dilation or dissection of the abdominal aorta. * The celiac artery, SMA, and MATTIE are patent without flow-limiting stenosis. Accessory left hepatic artery incidentally noted. * 2 right renal arteries and a single left renal artery, without flow-limiting stenosis. * Patent portal vein and splenic vein. Remaining venous structures not well opacified due to arterial phase timing. Peritoneum/Retroperitoneum: No free fluid or free air. Reproductive organs: Prostate gland and seminal vesicles are unremarkable. Abdominal Wall/Soft Tissues: No acute findings. Osseous Structures: No acute or suspicious osseous findings. Procedure Note Stephen Chadwick MD - 01/04/2025 EXAM: CT ANGIO ABDOMEN AND PELVIS W AND OR WO IV CONTRAST INDICATION: Aortic thrombus TECHNIQUE: CT angiography of the abdomen and pelvis was performed. Axialimages were obtained with coronal and sagittal reconstructions. 3-Dreconstructions and maximum intensity projection images were performed devin separate workstation. CONTRAST: 140 mL of IOHEXOL 350 MG IODINE/ML INTRAVENOUS SOLUTIONadministered intravenously FIELD OF VIEW: 36 cm COMPARISON: Outside CT 21 hours prior FINDINGS: Lower Chest: Reported separately on a same day chest CT. Liver: Normal liver morphology. No focal liver lesion. Biliary Tree: Gallbladder is surgically absent. No biliary ductaldilation. Spleen: Unremarkable Pancreas: Normal Adrenal Glands: Nodular hyperplasia of the left adrenal gland, with nodiscrete lesion. Right adrenal gland is normal. Kidneys/Ureters: Symmetric size and enhancement. Mild cortical scarring inthe left lower pole. No suspicious renal lesion. No collecting systemdilation. Urinary bladder is unremarkable Gastrointestinal Tract: GI tract wall thickness and caliber is withinnormal limits. A few scattered diverticula. Moderate amount of stoolthroughout the colon. Normal appendix Lymphatics: No lymphadenopathy. Vasculature: * Eccentric thrombus in the lower descending thoracic aorta, grosslyunchanged from 21 hours prior. Other intrathoracic aortic findings arereported on a concurrent CTPA. Mild calcified and noncalcifiedatherosclerotic disease at the infrarenal aorta and common iliac arteries,without aneurysmal dilation or dissection of the abdominal aorta. * The celiac artery, SMA, and MATTIE are patent without flow-limitingstenosis. Accessory left hepatic artery incidentally noted. * 2 right renal arteries and a single left renal artery, withoutflow-limiting stenosis. * Patent portal vein and splenic vein. Remaining venous structures notwell opacified due to arterial phase timing. Peritoneum/Retroperitoneum: No free fluid or free air. Reproductive organs: Prostate gland and seminal vesicles areunremarkable. Abdominal Wall/Soft Tissues: No acute findings. Osseous Structures: No acute or suspicious osseous findings. IMPRESSION: 1. Mild atherosclerosis of the infrarenal aorta and iliac branches. Nointra- aortic thrombi within the abdomen. Visceral arteries are patent. Report Verified by: Stephen Chadwick MD at 01/04/2025 8:32 AM EDT us Eben Urena MD IMG CT ORDERABLES Final Res ult * CT Pulmonary Angiography (01/04/2025 12:34 AM EDT) Anatomical Region Laterality Modality Chest Computed Tomogra phy 01/04/2025 12:1 5 AM EDT Impressions 01/04/2025 1:28 AM EDT IMPRESSION: 1. No acute pulmonary embolism. 2. Multifocal small free floating thrombi at the aortic arch and descending thoracic aorta Report Verified by: Daniel Lowery DO at 01/04/2025 1:28 AM EDT Narrative 01/04/2025 1:28 AM EDT EXAM: CT PULMONARY ANGIOGRAPHY INDICATION: Pulmonary embolism (PE) suspected, neg D-dimer COMPARISON: Outside hospital CT from 01/03/2025 TECHNIQUE: Multidetector CT imaging was performed through the lungs in the supine position following the administration of intravenous contrast according to the CTPA protocol. Additional maximum intensity projection images were performed. CONTRAST: 140 mL of IOHEXOL 350 MG IODINE/ML INTRAVENOUS SOLUTION administered intravenously FINDINGS: Study quality: Adequate Artifacts: None MEDICAL DEVICES: None. AIRWAYS & LUNGS: The central airways are patent. Mild diffuse bronchial wall thickening. Lungs are clear. PLEURA: No pleural effusions or pneumothorax. LOWER NECK: Unremarkable. PULMONARY EMBOLISM: None. HEART: The heart is normal in size. Minimal coronary artery calcifications. No significant pericardial effusion. ADDITIONAL VASCULAR STRUCTURES: Aorta is normal in caliber. Small filling defect along the aortic arch. Additional small free-floating luminal filling defects along the wall of the descending thoracic aorta which are similar compared to outside hospital CT from one day prior. Main pulmonary artery is normal in caliber. MEDIASTINUM AND RITU: No pathologically enlarged lymph nodes. CHEST WALL AND AXILLA: Unremarkable. UPPER ABDOMEN: Reported separately. OSSEOUS STRUCTURES: No suspicious osseous lesion or acute osseous abnormality. Multilevel degenerative changes throughout the spine. Procedure Note Rolando Lowery DO - 01/04/2025 EXAM: CT PULMONARY ANGIOGRAPHY INDICATION: Pulmonary embolism (PE) suspected, neg D-dimer COMPARISON: Outside hospital CT from 01/03/2025 TECHNIQUE: Multidetector CT imaging was performed through the lungs in thesupine position following the administration of intravenous contrastaccording to the CTPA protocol. Additional maximum intensity projectionimages were performed. CONTRAST: 140 mL of IOHEXOL 350 MG IODINE/ML INTRAVENOUS SOLUTIONadministered intravenously FINDINGS: Study quality: Adequate Artifacts: None MEDICAL DEVICES: None. AIRWAYS & LUNGS: The central airways are patent. Mild diffuse bronchialwall thickening. Lungs are clear. PLEURA: No pleural effusions or pneumothorax. LOWER NECK: Unremarkable. PULMONARY EMBOLISM: None. HEART: The heart is normal in size. Minimal coronary arterycalcifications. No significant pericardial effusion. ADDITIONAL VASCULAR STRUCTURES: Aorta is normal in caliber. Small fillingdefect along the aortic arch. Additional small free-floating luminalfilling defects along the wall of the descending thoracic aorta which aresimilar compared to outside hospital CT from one day prior. Main pulmonaryartery is normal in caliber. MEDIASTINUM AND RITU: No pathologically enlarged lymph nodes. CHEST WALL AND AXILLA: Unremarkable. UPPER ABDOMEN: Reported separately. OSSEOUS STRUCTURES: No suspicious osseous lesion or acute osseousabnormality. Multilevel degenerative changes throughout the spine. IMPRESSION: 1. No acute pulmonary embolism. 2. Multifocal small free floating thrombi at the aortic arch anddescending thoracic aorta Report Verified by: Daniel Lowery DO at 01/04/2025 1:28 AM EDT us Eben Urena MD IMG CT ORDERABLES Final Res ult * CT Head WO contrast (01/04/2025 12:34 AM EDT) Anatomical Region Laterality Modality Head Computed Tomogra phy 01/04/2025 12:1 5 AM EDT Impressions 01/04/2025 2:57 AM EDT IMPRESSION: 1. No intracranial mass effect or hemorrhage. 2. No acute intracranial abnormality. Approved by Xin See MD on 01/04/2025 2:52 AM EDT I have personally reviewed the images and I agree with this report. Report Verified by: Daniel Lowery DO at 01/04/2025 2:57 AM EDT Narrative 01/04/2025 2:57 AM EDT EXAM: CT HEAD WO CONTRAST INDICATION: Head trauma, minor, normal mental status (Age 18-64y) TECHNIQUE: Axial thin section CT images of the head were obtained without contrast. Sagittal and coronal 2-D multiplanar reconstructions were performed at the scanner. COMPARISON: None available. FINDINGS: Adequate diagnostic quality. Brain parenchyma: No acute intracranial hemorrhage, mass effect, or midline shift. Carcamo-white matter differentiation is preserved. Ventricles and extraaxial spaces: Normal ventricular system. No extra-axial fluid collection. Orbits, paranasal sinuses, mastoids: No acute orbital abnormality. Clear paranasal sinuses. Clear mastoid air cells. Extracranial soft tissues: Normal. Calvarium and skull base: No fracture or suspicious osseous lesion. Other: No other abnormalities. Procedure Note Rolando Lowery DO - 01/04/2025 EXAM: CT HEAD WO CONTRAST INDICATION: Head trauma, minor, normal mental status (Age 18-64y) TECHNIQUE: Axial thin section CT images of the head were obtained withoutcontrast. Sagittal and coronal 2-D multiplanar reconstructions wereperformed at the scanner. COMPARISON: None available. FINDINGS: Adequate diagnostic quality. Brain parenchyma: No acute intracranial hemorrhage, mass effect, ormidline shift. Carcamo-white matter differentiation is preserved. Ventricles and extraaxial spaces: Normal ventricular system. Noextra-axial fluid collection. Orbits, paranasal sinuses, mastoids: No acute orbital abnormality. Clearparanasal sinuses. Clear mastoid air cells. Extracranial soft tissues: Normal. Calvarium and skull base: No fracture or suspicious osseous lesion. Other: No other abnormalities. IMPRESSION: 1. No intracranial mass effect or hemorrhage. 2. No acute intracranial abnormality. Approved by Xin See MD on 01/04/2025 2:52 AM EDT I have personally reviewed the images and I agree with this report. Report Verified by: Daniel Lowery DO at 01/04/2025 2:57 AM EDT us Eben Urena MD IMG CT ORDERABLES Final Res ult * Anticardiolipin Antibody- IgG/IgM (01/03/2025 5:33 PM EDT) Anticardiolipin Ab, IgG 3.4 0.0 - 20.0 U/mL 01/04/2025 11:31 AM EDT [facility] Anticardiolipin Ab, IgM 2.1 0.0 - 20.0 U/mL 01/04/2025 11:31 AM EDT [facility] Comment:Results <= 20 U/mL a re considered negative for anti-cardiolipin antibodies. Plasma 01/03/2025 5:33 PM EDT 01/03/2025 5:44 PM EDT Eben Urena MD LAB BLOOD ORDERABLES Final Result Performing Organization Address City/[facility] Co de Phone Number [facility] [address] [facility] * Beta 2 Glycoprotein IgG/IgM (01/03/2025 5:33 PM EDT) Pathologist [facility] Beta 2 Glycoprotein IgG 8.6 0.0 - 20.0 U/mL 01/04/2025 11:31 AM EDT [facility] Comment:Results <= 20 U/mL a re considered negative for anti-Beta-2 glycoprotein- 1 antibodies. Beta 2 Glycoprotein IgM <1.1 0.0 - 20.0 U/mL 01/04/2025 11:31 AM EDT [facility] Comment:Results <= 20 U/mL a re considered negative for anti-Beta-2 glycoprotein- 1 antibodies. Plasma 01/03/2025 5:33 PM EDT 01/03/2025 5:44 PM EDT Eben Urena MD LAB BLOOD ORDERABLES Final Result Performing Organization Address City/[facility] Co de Phone Number [facility] [address] [facility] * Factor 5 Leiden, Factor 2 DNA BY PCR (01/03/2025 5:33 PM EDT) [facility] Factor II, DNA Analysis Normal Normal 01/04/2025 10:36 AM EDT [facility] Factor V Leiden Normal Normal 01/04/2025 10:36 AM EDT [facility] Whole Blood 01/03/2025 5:33 PM EDT 01/03/2025 6:12 PM EDT Narrative [facility] - 01/04/2025 10:36 AM EDT NOT DETECTED: PROTHROMBIN [id number]. NOT DETECTED: FACTOR V LEIDEN. No Detection of the Factor V, c.1691G>A, p.Rfa472Hep mutation (known as Factor V Leiden). No Detection of the Factor II, c.63194G>A, 3` UTR (untranslated region) mutation (known as Prothrombin [id number]). This test cannot rule out other genetic or acquired causes of venous thrombosis. The carrier frequency of Factor V, c.1691G>A, p.[id number] mutation (known as Factor V Leiden) in the [place] population is between 1-5% depending on the patient`s ethnic background. Factor V Leiden accounts for 85-95% of activated protein C resistance cases. The Factor II, c.62140Z>A, 3` UTR (untranslated region) mutation (known as Prothrombin [id number]) is present in 1-2% of the general population and has been observed in most ethnic groups. Note: In cases where a variant is detected, other family members may have the same findings. Additional genetic and acquired thrombophilic states may act synergistically with detected variant (if present) to increase the patient`s thrombotic risk and complications in (if applicable). This test cannot rule out other genetic or acquired causes of venous thrombosis. Interventions must be made on an individual basis, balancing clinical history and potential benefits of prophylaxis with known risk of anticoagulation therapy. Recommend follow-up with physician and/or genetic counselor. The [facility] laboratory performs a FDA-approved, multiplexed DNA amplification assay that detects the Factor II ([id number]) and the Factor V Leiden ([id number]) mutations using a combination of gene-specific and allele-specific primers and probes. The [employer] automates and integrates sample purification, nucleic acid amplification, and detection of the target sequence in whole blood using real-time Polymerase Chain Reaction (PCR) assays within a single-use disposable cartridge that prevents cross-contamination between samples. ZANDRA Haas, et al. (2001) Genetics in Medicine.3: 139-148; Ragland V et al. (1999) N Engl J Med. 341:801-806; Oscar Hennessy. et al. (2001) Thromb Haemost 86: 809- 816; MARIELY Bautista, et al. (1997) ALEXANDRE. 277: 9863-3494; SR Heidi, et al. (1996) Blood. 88 (10): 6480-2922 Results verified by [employer] Eben Urena MD LAB BLOOD ORDERABLES Final Result Performing Organization Address City/[facility] Co de Phone Number [facility] [address] [place] [address]. [address] * Protein S, Functional (01/03/2025 5:33 PM EDT) Protein S Activity 102 77 - 143 % 01/06/2025 11:38 AM EDT [facility] Plasma Frozen 01/03/2025 5:3 3 PM EDT 01/03/2025 5:44 PM EDT Eben Urena MD LAB BLOOD ORDERABLES Final Result Performing Organization Address [facility] Co de Phone Number [facility] [address] [place] [address]. [address] * Protein C activity (01/03/2025 5:33 PM EDT) Protein C Activity 130 70 - 130 % 01/06/2025 11:38 AM EDT [facility] Plasma Frozen 01/03/2025 5:3 3 PM EDT 01/03/2025 5:44 PM EDT Eben Urena MD LAB BLOOD ORDERABLES Final Result Performing Organization Address [facility] Co de Phone Number [facility] [address] [facility]. [address] * Antithrombin III (01/03/2025 5:33 PM EDT) AntiThromb III Func 103 80 - 120 % 01/04/2025 12:06 PM EDT [facility] Comment:ATIII deficiency, ei ther congenital or acquired, increases the risk of thromboembolism. Congenital ATIII deficiency is very rare. Acquired ATIII deficiency is more common and is associated with heparin therapy, disseminated intravascular coagulation (DIC), sepsis, acute thrombotic event, malnutrition, severe liver disease, nephrotic syndrome, inflammatory bowel disease, and drug therapy with L-asparaginse or fluorouracil. Plasma Frozen 01/03/2025 5:3 3 PM EDT 01/03/2025 5:44 PM EDT Eben Urena MD LAB BLOOD ORDERABLES Final Result Performing Organization Address [facility]/ZIP Co de Phone Number [facility] [address] [facility]. [address] * (ABNORMAL) APTT, No Anticoagulant (01/03/2025 5:15 PM EDT) Only the most recent of2 resultswithin the time period is included. aPTT 20.0(L) 25.5 - 35.0 seconds 01/03/2025 6:12 PM EDT [facility] Plasma 01/03/2025 5:15 PM EDT 01/03/2025 5:30 PM EDT Eben Urena MD LAB BLOOD ORDERABLES Final Result Performing Organization Address [facility] Co de Phone Number [facility] [address] [facility]. [address] * Protime-INR (01/03/2025 5:15 PM EDT) Only the most recent of2 resultswithin the time period is included. Protime 13.8 12.1 - 15.1 seconds 01/03/2025 6:04 PM EDT [facility] INR 1.0 0.9 - 1.1 01/03/2025 6:04 PM EDT [facility] Comment: RECOMMENDED THERAPEUTIC RANGES USING INR : Stable oral anticoagulant therapy: 2.0 - 3.0 Mechanical prosthetic heart valve: 2.5 - 3.5 Recurrent acute myocardial infarction: 2.5 - 3.5 Plasma 01/03/2025 5:15 PM EDT 01/03/2025 5:30 PM EDT Eben Urena MD LAB BLOOD ORDERABLES Final Result [facility] [address] * Uric Acid (01/03/2025 5:15 PM EDT) Uric Acid 4.5 3.8 - 8.7 mg/dL 01/03/2025 6:11 PM EDT [facility] Plasma 01/03/2025 5:15 PM EDT 01/03/2025 5:39 PM EDT us Eben Urena MD LAB BLOOD ORDERABLES Final Result Performing Organization Address City/[facility]/ZIP Co de Phone Number [facility] [address] * CK (01/03/2025 4:24 PM EDT) Only the most recent of2 resultswithin the time period is included. Pathologist [facility] Total CK 64 30 - 223 U/L 01/03/2025 5:00 PM EDT [facility] Plasma 01/03/2025 4:24 PM EDT 01/03/2025 4:46 PM EDT us Naz Flores MD LAB BLOOD ORDERABLES F inal Result Performing Organization Address City/[facility]/ZIP Co de Phone Number [facility] [address] [facility] * High Sensitivity Troponin (60min) (01/03/2025 2:32 PM EDT) Only the most recent of2 resultswithin the time period is included. High Sensitivity Troponin 8 0 - 20 ng/L 01/03/2025 3:20 PM EDT [facility] Serum 01/03/2025 2:32 PM EDT 01/03/2025 2:48 PM EDT Narrative [facility] - 01/03/2025 3:20 PM EDT Please draw 60min after time that first troponin is drawn. Davide Mike MD LAB BLOOD ORDERABLES Final Resu lt [facility] [address] [place] [address], [facility] * X-ray Portable Chest (01/03/2025 1:13 PM EDT) Anatomical Region Laterality Modality Chest Radiographic Mattie ging 01/03/2025 1:12 PM EDT Impressions 01/03/2025 1:32 PM EDT IMPRESSION: No acute cardiopulmonary abnormality. Report Verified by: Guy Lopez MD at 01/03/2025 1:32 PM EDT Narrative 01/03/2025 1:32 PM EDT EXAM: XR PORTABLE CHEST INDICATION: Chest pain, unspecified TECHNIQUE: 1 view of the chest. DATE: 01/03/2025 1:12 PM EDT COMPARISON: None. FINDINGS: Medical Devices: None. Heart and Mediastinum: Cardiomediastinal silhouette is within normal limits. Lungs and Pleura: Lungs are clear. No pleural abnormalities. The right costophrenic angle is partly excluded. Bones and soft tissues: No acute abnormalities. Procedure Note Guy Lopez MD - 01/03/2025 EXAM: XR PORTABLE CHEST INDICATION: Chest pain, unspecified TECHNIQUE: 1 view of the chest. DATE: 01/03/2025 1:12 PM EDT COMPARISON: None. FINDINGS: Medical Devices: None. Heart and Mediastinum: Cardiomediastinal silhouette is within normallimits. Lungs and Pleura: Lungs are clear. No pleural abnormalities. The rightcostophrenic angle is partly excluded. Bones and soft tissues: No acute abnormalities. IMPRESSION: No acute cardiopulmonary abnormality. Report Verified by: Guy Lopez MD at 01/03/2025 1:32 PM EDT Davide Mike MD IMG DIAGNOSTIC IMAGING ORDERABL ES Final Result * ED HCV Ab Reflex To HCV Quant (01/03/2025 11:52 AM EDT) HCV Ab Nonreactive Nonreactive 01/03/2025 1:29 PM EDT [facility] Comment:Health Department no tified in accordance with reportable infectious disease guidelines. HCVAB Number 0.03 0.00 - 0.79 S/CO 01/03/2025 1:29 PM EDT [facility] Serum 01/03/2025 11:5 2 AM EDT 01/03/2025 12:27 PM EDT Davide Mike MD LAB BLOOD ORDERABLES Final Resu lt Performing Organization Address City/[facility] Co de Phone Number [facility] [address] [facility]. [address] * ABO/Rh (01/03/2025 11:52 AM EDT) ABO Grouping A 01/03/2025 1:03 PM EDT [facility] Rh Type Positive 01/03/2025 1:03 PM EDT [facility] Blood 01/03/2025 11:5 2 AM EDT 01/03/2025 12:24 PM EDT Davide Mike MD BLOOD BANK TEST ORDERABLES Glo l Result Performing Organization Address [facility] de Phone Number [facility] [address] [facility]. [address] * (ABNORMAL) Differential (01/03/2025 11:52 AM EDT) Neutrophils Relative 77.4 40.0 - 80.0 % 01/03/2025 12:36 PM EDT [facility] Lymphocytes Relative 15.7 15.0 - 45.0 % 01/03/2025 12:36 PM EDT [facility] Monocytes Relative 6.2 0.0 - 12.0 % 01/03/2025 12:36 PM EDT [facility] Eosinophils Relative 0.2 0.0 - 8.0 % 01/03/2025 12:36 PM EDT [facility] Basophils Relative 0.5 0.0 - 1.0 % 01/03/2025 12:36 PM EDT [facility] nRBC 0 0 - 0 /100 WBC 01/03/2025 12:36 PM EDT [facility] Neutrophils Absolute 20,201(H) 1,520 - 8,640 /uL 01/03/2025 12:36 PM EDT [facility] Lymphocytes Absolute 4,098 570 - 4,860 /uL 01/03/2025 12:36 PM EDT [facility] Monocytes Absolute 1,618(H) 0 - 1,296 /uL 01/03/2025 12:36 PM EDT [facility] Eosinophils Absolute 52 0 - 864 /uL 01/03/2025 12:36 PM EDT [facility] Basophils Absolute 131(H) 0 - 108 /uL 01/03/2025 12:36 PM EDT [facility] Whole Blood 01/03/2025 11:5 2 AM EDT 01/03/2025 12:27 PM EDT Davide Mike MD LAB BLOOD ORDERABLES Final Resu lt [facility] [address] * Antibody Screen (01/03/2025 11:52 AM EDT) Pathologist [facility] Antibody Screen Negative 01/03/2025 1:19 PM EDT [facility] Blood 01/03/2025 11:5 2 AM EDT 01/03/2025 12:24 PM EDT Narrative [facility] - 01/03/2025 1:22 PM EDT Testing performed by [facility] Davide Mike MD BLOOD BANK TEST ORDERABLES Glo l Result [facility] [address] * (ABNORMAL) Hemoglobin A1c (01/03/2025 11:52 AM EDT) Hemoglobin A1C 5.7(H) 4.0 - 5.6 % 01/03/2025 1:21 PM EDT [facility] Comment: Hemoglobin A1c Interpretation Guidelines: Normal: <5.7% Prediabetes: 5.7-6.4% Diabetes: >6.4% Diagnosis requires two independent tests unless clinical diagnosis is clear. Some clinical conditions, particularly anemias and hemoglobinopathies, may interfere with the diagnostic accuracy of hemoglobin A1c. The recommended goal for diabetic glycemic control (Hemoglobin A1c <7.0%) should be individualized based on duration of diabetes, age/life expectancy, comorbid conditions, known CVD or advanced microvascular complications, hypoglycemia unawareness, and other individual patient considerations. Whole Blood 01/03/2025 11:5 2 AM EDT 01/03/2025 12:27 PM EDT Narrative [facility] - 01/03/2025 1:21 PM EDT A1C project?->Yes us Davide Mike MD LAB BLOOD ORDERABLES Final Resu lt [facility] [address] * (ABNORMAL) Basic metabolic panel (01/03/2025 11:52 AM EDT) Sodium 136 133 - 146 mmol/L 01/03/2025 12:40 PM EDT [facility] Potassium 4.3 3.5 - 5.3 mmol/L 01/03/2025 12:40 PM EDT [facility] Comment:Hemolysis Present: R esults may be influenced artificially. Recommend recollection as clinically indicated. Chloride 105 98 - 110 mmol/L 01/03/2025 12:40 PM EDT [facility] CO2 20(L) 21 - 33 mmol/L 01/03/2025 12:40 PM EDT [facility] Anion Gap 11 3 - 16 mmol/L 01/03/2025 12:40 PM EDT [facility] BUN 19 7 - 25 mg/dL 01/03/2025 12:40 PM EDT [facility] Creatinine 1.48(H) 0.60 - 1.30 mg/dL 01/03/2025 12:40 PM EDT [facility] Glucose 93 70 - 100 mg/dL 01/03/2025 12:40 PM EDT [facility] Calcium 8.7 8.6 - 10.3 mg/dL 01/03/2025 12:40 PM EDT [facility] Osmolality, Calculated 284 278 - 305 mOsm/kg 01/03/2025 12:40 PM EDT [facility] EGFR 58 01/03/2025 12:40 PM EDT [facility] Comment:As of 2021, the estimated GFR is calculated using the 2020 Chronic Kidney Disease Epidemiology Collaboration (CKD-EPI) equation. In line with the NKF-ASN Task Force Recommendations, this equation does not include a coefficient for race. A single eGFR value is calculated for each patient. The reference interval is >60 mL/min/1.73m2. eGFR values greater than 90 will be reported as >90mL/min/1.73m2. Reference: Jaxson C, Thuan M, Raoul DC, Gabriele ND, Rahul [place], Holly [place], et al. A Unifying Approach for GFR Estimation: Recommendations of the NKF-ASN Task Force on Reassessing the inclusion of Race in Diagnosing Kidney Disease. Am J Kidney Dis. 2020. Plasma 01/03/2025 11:5 2 AM EDT 01/03/2025 12:15 PM EDT us Davide Mike MD LAB BLOOD ORDERABLES Final Resu lt [facility] [address] * ED ECG 12-Lead (MUSE) (01/03/2025 11:39 AM EDT) 01/03/2025 11:3 9 AM EDT Narrative MUSE - 01/03/2025 12:10 PM EDT Ventricular Rate: 74 BPM Atrial Rate: 74 BPM P-R Interval: 146 ms QRS Duration: 70 ms QT: 416 ms QTc: 461 ms P [place]: 38 degrees R [place]: 19 degrees T [place]: 62 degrees Diagnosis Line: ^ INTERPRETATION NOT AVAILABLE--ECG READ IN ER ^ Confirmed by PHYSICIAN, ER ([id number]), editor department Martine Luciano ([id number]) on 01/03/2025 12:10:36 PM us Genaro Bowers MD ECG ORDERABLES Final Resul t MUSE from Last 3 Months Insurance [employer] Advance Directives For more information, please contact: [phone] * Full Code (Latest Code Status on File) Date Activated Date Inactivated Comments 01/03/2025 4:26 PM 01/04/2025 6:47 PM Care Teams Perioperative Nurse Relationship Specialty Start Date End Date Pcp, No No Address PCP - General 01/03/25
== END 2025-03-14 23:59 | disposition home or self-care (01) ==
LOC: LAB.DROPOF 03-15 09:32
PROVIDERS: PCP Family Medicine; Visit Provider Family Medicine
DX: F41.9 Anxiety disorder, unspecified (principal); I82.409 Acute embolism and thrombosis of unspecified deep veins of unspecified lower extremity
CPT/HCPCS: 80053; 81241; 84443; 85007; 85014; 85018; 85048; 85049